=== PATIENT | female | born 1995 | race Caucasian/White ===

== ENCOUNTER 2017-06-26 06:00 | Emergency (ER) | payer BC ==
[2017-06-26] MEDS ORDERED: Ondansetron INJ* 2 MG/ML VIAL IV ONE (06:16)
[2017-06-26] MEDS ORDERED: NS 0.9% 1000 ML* 1,000 ML IV ONE (06:16)
[2017-06-26] MEDS ORDERED: Morphine INJ* 4 MG/ML 1 ML CARPUJECT IV PRN (06:16)
[2017-06-26] MEDS ORDERED: Morphine INJ* 4 MG/ML 1 ML SYRINGE (NEW SYRINGE VERSION) IV PRN (06:33)
--- NOTE | 2017-06-26 07:02 | ED ---
Toni Ni Angela, scribed for Aleksandar Cline on 06/26/17 at 0621 . Abdominal Pain/Female - HPI Summary HPI Summary: This pt is a 21 y/o female presenting to [facility] c/o right upper quadrant abd pain radiating to her back since 01:00 today. Pt describes her pain as sharp and rates her pain 7/10 in severity. She denies nausea, vomiting, diarrhea, constipation, rash. Pt states she was diagnosed with gallstones in December 2016 in [place], [place]. She denies any other PMHx. Denies appendectomy. NKDA. - History of Current Complaint Chief Complaint: EDAbdPain Stated Complaint: ABD PAIN Hx Obtained From: Patient Onset/Duration: Lasting Hours, Still Present Timing: Hours Severity Currently: Severe Pain Intensity: 7 Pain Scale Used: 0-10 Numeric Location: Discrete At: RUQ Radiates: Yes Radiates to: Back Character: Sharp Aggravating Factor(s): Nothing Alleviating Factor(s): Nothing Associated Signs and Symptoms: Positive: Back Pain. Negative: Constipation, Nausea, Vomiting, Diarrhea Allergies/Adverse Reactions: Allergies Allergy/AdvReac Type Severity Reaction Status Date / Time No Known Allergies Allergy Verified 06/26/17 06:16 PMH/Surg Hx/FS Hx/Imm Hx Endocrine/Hematology History: Denies: Hx Diabetes Cardiovascular History: Denies: Hx Hypertension GI History: Reports: Other GI Disorders - hx of gallstones - Surgical History Surgery Procedure, Year, and Place: none Infectious Disease History: No Infectious Disease History: Denies: Traveled Outside the [place] in Last 30 Days - Family History Known Family History: Positive: None - Social History Alcohol Use: Weekly Substance Use Type: Reports: Marijuana Substance Use Comment - Amount & Last Used: marijuana monthly 1 joint Smoking Status (MU): Never Smoked Tobacco Review of Systems Negative: Fever, Chills Positive: Abdominal Pain, Other - constipation. Negative: Vomiting, Diarrhea, Nausea Musculoskeletal: Other - back pain Negative: Rash All Other Systems Reviewed And Are Negative: Yes Physical Exam - Summary Physical Exam Summary: Appearance: Well appearing, no pain distress Skin: warm, dry, reflects adequate perfusion Head/face: normal Eyes: EOMI, TUTU ENT: normal Neck: supple, nontender Respiratory: CTA, breath sounds present Cardiovascular: RRR, pulses symmetrical Abdomen: right upper quadrant tenderness Bowel: present Musculoskeletal: normal, strength/ROM intact Neuro: normal, sensory motor intact, A&Ox3 Triage Information Reviewed: Yes Vital Signs On Initial Exam: Initial Vitals Temp Pulse Resp BP Pulse Ox 97.3 F 93 16 144/81 98 06/26/17 06:02 06/26/17 06:02 06/26/17 06:02 06/26/17 06:02 06/26/17 06:02 Vital Signs Reviewed: Yes Diagnostics - Vital Signs Vital Signs Temp Pulse Resp BP Pulse Ox 06/26/17 06:02 97.3 F 93 16 144/81 98 - Laboratory Lab Statement: Any lab studies that have been ordered have been reviewed, and results considered in the medical decision making process. Abdominal Pain Fem Course/Dx - Course Course Of Treatment: Pt is a 21 y/o female, with hx of gallstones, presents with RUQ abd pain radiating to her back since 01:00 today. Bloodwork and US gallbladder obtained. In the ED course, the pt was given IV fluids, zofran, and morphine. Pt will be signed out to Dr. Walter, pending disposition, awaiting US gallbladder. - Diagnoses Provider Diagnoses: Abdominal pain Discharge - Discharge Plan Condition: Stable Disposition: OTHER Discharge Disposition Comment: sign out to Dr. Walter, pending dispo, awaiting labs an US gallbladder. Referrals: No Primary Care Phys,NOPCP [Primary Care Provider] - The documentation as recorded by the Toni green Angela accurately reflects the service I personally performed and the decisions made by , Aleksandar Cline.
--- NOTE | 2017-06-26 08:01 | RAD ---
Indication: Cholecystitis. Real-time sonography of the right upper quadrant was performed. Liver is normal in size. No focal lesions or intrahepatic ductal dilatation is noted. Common duct measures 3.4 mm. The gallbladder demonstrates multiple echogenic foci with posterior acoustic shadowing consistent with cholelithiasis. No biliary duct dilatation is noted. The right kidney measures 12.0 x 4.1 x 5.6 cm with no hydronephrosis. The pancreas is not well visualized due to overlying gas. Aorta and inferior vena cava are unremarkable. IMPRESSION: Cholelithiasis without biliary duct dilatation. The pancreas is obscured by overlying gas.
[2017-06-26 08:02] LABS: ABS Basophils 0 10^3/ul (0-0.2); ABS Eosinophils 0.1 10^3/ul (0-0.6); ABS Monocytes 0.7 10^3/ul (0-0.8); ABS Neutrophils 5.1 10^3/ul (1.5-7.7); ABS Nucleated RBC 0 10^3/ul; Hematocrit 41 % (35-47); Hemoglobin 14.5 g/dl (12.0-16.0); Lymphocyte % 14.6 % (25-47); Mean Corpuscular HGB Conc 36 g/dl (31-36); Mean Corpuscular Hemoglobin 31 pg (27-31); Mean Corpuscular Volume 88 fL (80-97); Mean Platelet Volume 9 um3 (7.4-10.4); Nucleated Red Blood Cells % 0.1; Platelet Count 230 10^3/ul (150-450); Red Blood Count 4.64 10^6/ul (4.0-5.4); Red Cell Distribution Width 13 % (10.5-15); White Blood Count 6.9 10^3/ul (3.5-10.8)
[2017-06-26 08:09] LABS: INR 1.02 (0.77-1.02)
[2017-06-26 08:14] LABS: Urine Appearance Clear; Urine Blood Negative (Negative); Urine Color Straw; Urine Ketones Negative (Negative); Urine Protein Negative (Negative); Urine Specific Gravity 1.005 (1.010-1.030); Urine Urobilinogen Negative (Negative)
[2017-06-26 08:16] LABS: EGFR Non-African American 117.1 (>60)
[2017-06-26 10:36] VITALS: BP 129/65
--- NOTE | 2017-06-26 20:30 | ED ---
Alexandre Ni Stephanie, scribed for Verito Banegas MD on 06/26/17 at 0805 . Progress - Progress Note Progress Note: This pt is a sign out from Dr. Cline at shift change. US gallbladder reveals: Cholelithiasis without biliary duct dilatation. The pancreas is obscured by overlying gas. Re-Evaluation - Re-Evaluation First Eval Re-Evaluation Time: 09:57 Change: Improved - ED physician discusses the finding of gallstones with the pt. The pt understands and agrees with the plan of discharge. ED physician advises the pt to make an appointment to follow up with Dr. Quesada as soon as possible. The pt reports no pain. Course/Dx - Course Course Of Treatment: Pt is a 21 y/o female, with hx of gallstones, presents with RUQ abd pain radiating to her back since 01:00 today. Bloodwork and US gallbladder obtained. In the ED course, the pt was given IV fluids, zofran, and morphine. Pt will be signed out to Dr. Banegas, pending disposition, awaiting US gallbladder. DR. BANEGAS SHIFT: At 08:15, the pt does not want morphine or Zofran. The pt feels much better per nurse Theresa.09:57: ED physician discusses the finding of gallstones with the pt. The pt understands and agrees with the plan of discharge. ED physician advises the pt to make an appointment to follow up with Dr. Quesada as soon as possible. The pt reports no pain. DISPOSITION: STABLE - Diagnoses Provider Diagnoses: Abdominal pain, Gallbladder colic The documentation as recorded by the Alexandre green Stephanie accurately reflects the service I personally performed and the decisions made by , Verito Banegas MD.
== END 2017-06-26 10:33 | disposition home or self-care (01) ==
LOC: ED 06:00
DX: K80.20 Calculus of gallbladder without cholecystitis without obstruction (principal); R10.9 Unspecified abdominal pain
CPT/HCPCS: 36415; 76705; 80053; 81003; 83690; 84484; 84702; 85025; 85610; 85730; 96374; 96375; 99282